=== PATIENT | male | born 1965 | race Caucasian/White ===

== ENCOUNTER 2024-12-29 11:12 | Emergency (ER) | payer BC, SELFPAY ==
[2024-12-29 11:32] VITALS: BP 138/75
--- NOTE | 2024-12-29 11:33 | ED.GENMED ---
ED Provider Triage
<Dinora Benz PA-C - Last Filed: 12/30/24 17:12>
-
Patient seen by provider in Triage?: Seen in Triage
59-year-old male smoker, no other known medical problems presents for chest pain that started yesterday with some left hand tingling and nausea or dry heaving. The pain seemed to get worse this morning from 7 and 9 AM where he felt like something
was sitting on his chest, it was hard to take a deep breath during this time. It did spontaneously get better without any meds. He has never had anything like that before. Patient works in [employer] and drove out this way because he lives here
to come to the hospital.
A medical screening examination has been initiated by a qualified medical provider. Based on the assessment performed at this time, it has been determined that an emergent medical condition may exist and the patient has been informed that further
medical evaluation and possible additional diagnostic testing may be needed.
HPI: This is a medical evaluation conducted in person to initiate diagnostic evaluation and provide initial therapeutics. Please see further documentation by the treating clinician.
GENERAL: Alert , in no apparent distress
ENT: No visible abnormalities
LUNGS: No acute respiratory distress
NEUROLOGICAL: Alert and oriented
SKIN: Skin intact. No visible changes.
MUSCULOSKELETAL: Moving extremities normally
PSYCH: Normal and appropriate interaction.
Will start with labs and an EKG and troponin, concerning sounding chest pain for ACS. Pain is much improved currently. He is not significantly hypertensive. No known PE risk factors
EKG reviewed and he does have a new T wave inversion, RSR prime in V2 where he only had it in V1 previously
History of Present Illness
<Dinora Benz PA-C - Last Filed: 12/30/24 17:12>
General
Chief Complaint: Chest Pain
Time Seen by Provider: 12/29/24 16:26
<Susi French PA-C - Last Filed: 12/30/24 01:10>
General
Source: patient
Exam Limitations: none
Nursing documentation reviewed up to this point in time: agreed with
History of Present Illness
History of Present Illness:
59-year-old male with no known past medical history presents emergency department today with concerns of chest pain. This started earlier today while at work. Patient states that when he woke up this morning, he started to feel numbness and
tingling in his left upper extremity starting at the forearm down to the fingers. 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
feel heaviness in his chest. He states that he felt it in the middle of his chest and in the epigastric region. Patient reports that this felt similar 20s had heartburn in the past but states that it was more intense than heart burn he has had.
Patient states that he took a walk at work and also started develop some lightheadedness as well and states that he felt winded. Patient reports that all the symptoms have resolved and currently he is pain-free however he does note some fatigue.
He states that his chest pain has entirely resolved. He denies any shortness of breath. He states that his paresthesias have resolved as well. He denies any trouble walking. He denies any redness or swelling in his lower extremities. Denies any
recent surgeries or hospitalizations. Denies any family history of cardiac disease. He has no personal history of cardiac disease. He does smoke a few cigarettes daily and states that he is trying to quit.
Past History
<Dinora Benz PA-C - Last Filed: 12/30/24 17:12>
Past History
ED Past Medical History: Other (Chronic low back pain and bone spurs which is treated with analgesics everyday)
Social History
Tobacco: Smoker
Alcohol: Occasional
Family History
Family History: Negative Diabetes, Hypertension or CAD
Review of Systems
<Susi French PA-C - Last Filed: 12/30/24 01:10>
Review of Systems
All Other Systems: ROS reviewed and negative except as documented in HPI and ROS
Phy Exam
<Susi French PA-C - Last Filed: 12/30/24 01:10>
Physical Exam
Physical Exam:
General: Patient is well appearing and in no acute distress; non-toxic
Skin: Warm and dry, no rashes or lesions
Head: Normocephalic, atraumatic
Eyes: Sclera non-icteric. EOMs intact.
Cardiac: Regular rate and rhythm, no murmurs, no tenderness palpation of external chest wall
Peripheral Vascular: No lower extremity swelling or edema, 2+ radial pulses bilaterally.
Pulm: Normal respiratory effort, no wheezes, rales, rhonchi
Abdomen: No abdominal tenderness to palpation
Musculoskeletal: 5 out of 5 strength in bilateral upper extremities. No midline cervical tenderness to palpation no midline thoracic tenderness.
Neuro: CN II-XII intact, no focal neurologic deficits. Sensation intact to left upper extremity.
Psychiatric: Appropriate mood and affect.
Scores
<Dinora Benz PA-C - Last Filed: 12/30/24 17:12>
Heart Score for Chest Pain Patients
Heart Score for Chest Pain Patients: 3
Heart Score Risk: 2.5% MACE over next 6 weeks
<Susi French PA-C - Last Filed: 12/30/24 01:10>
Heart Score for Chest Pain Patients
Heart Score for Chest Pain Patients: 3
Heart Score Risk: 2.5% MACE over next 6 weeks
<Page Woodson DO - Last Filed: 12/29/24 17:44>
Heart Score for Chest Pain Patients
STEMI patient?: No
History: Moderately Suspicious
ECG: Normal
Age: >45 - <65 years
Risk Factors: 1 or 2 Risk Factors
Troponin: </= Normal Limit
Heart Score for Chest Pain Patients: 3
Heart Score Risk: 2.5% MACE over next 6 weeks
Course
<Dinora Benz PA-C - Last Filed: 12/30/24 17:12>
Orders/Labs/Results
Orders:
Orders
12/29/24 11:13
EKG [Electrocardiogram (*1)] Urgent
Reason for Study: Chest Pain
EKG- Treatment ONCE
12/29/24 11:46
Complete Blood Count/With Diff Urgent
Comprehensive Metabolic Panel Urgent
Lipase Urgent
Troponin I Urgent
12/29/24 15:58
Electrocardiogram (*1) Urgent
Reason for Study: Chest Pain
EKG- Treatment ONCE
12/29/24 16:56
Troponin I Urgent
Abnormal Lab Results
12/29/24
11:46
MCHC 32.9 L g/dL
(33.0-37.0)
Absolute Monos (auto) 0.8 H 10^3/uL
(0.1-0.6)
Monocytes % 9.4 H %
(1.7-9.3)
Carbon Dioxide 32 H mmol/L
(22-30)
Creatinine 0.6 L mg/dL
(0.7-1.3)
Glucose 103 H mg/dl
(70-99)
12/29/24 11:46
12/29/24 11:46
Vital Signs
Initial and Last Documented VS:
Initial Vital Signs
Temp Pulse Resp BP Pulse Ox
36.9 C 60 16 138/75 97
12/29/24 11:32 12/29/24 11:32 12/29/24 11:32 12/29/24 11:32 12/29/24 11:32
Last Documented Vital Signs
Temp Pulse Resp BP Pulse Ox
36.9 C 51 10 130/65 93
12/29/24 11:32 12/29/24 18:30 12/29/24 18:30 12/29/24 16:17 12/29/24 18:15
<Susi French PA-C - Last Filed: 12/30/24 01:10>
Orders/Labs/Results
Orders:
Orders
12/29/24 11:13
EKG [Electrocardiogram (*1)] Urgent
Reason for Study: Chest Pain
EKG- Treatment ONCE
12/29/24 11:46
Complete Blood Count/With Diff Urgent
Comprehensive Metabolic Panel Urgent
Lipase Urgent
Troponin I Urgent
12/29/24 15:58
Electrocardiogram (*1) Urgent
Reason for Study: Chest Pain
EKG- Treatment ONCE
12/29/24 16:56
Troponin I Urgent
Abnormal Lab Results
12/29/24
11:46
MCHC 32.9 L g/dL
(33.0-37.0)
Absolute Monos (auto) 0.8 H 10^3/uL
(0.1-0.6)
Monocytes % 9.4 H %
(1.7-9.3)
Carbon Dioxide 32 H mmol/L
(22-30)
Creatinine 0.6 L mg/dL
(0.7-1.3)
Glucose 103 H mg/dl
(70-99)
12/29/24 11:46
12/29/24 11:46
Vital Signs
Initial and Last Documented VS:
Initial Vital Signs
Temp Pulse Resp BP Pulse Ox
36.9 C 60 16 138/75 97
12/29/24 11:32 12/29/24 11:32 12/29/24 11:32 12/29/24 11:32 12/29/24 11:32
Last Documented Vital Signs
Temp Pulse Resp BP Pulse Ox
36.9 C 51 10 130/65 93
12/29/24 11:32 12/29/24 18:30 12/29/24 18:30 12/29/24 16:17 12/29/24 18:15
<Page Woodson, DO - Last Filed: 12/29/24 17:44>
Orders/Labs/Results
Orders:
Orders
12/29/24 11:13
EKG [Electrocardiogram (*1)] Urgent
Reason for Study: Chest Pain
EKG- Treatment ONCE
12/29/24 11:46
Complete Blood Count/With Diff Urgent
Comprehensive Metabolic Panel Urgent
Lipase Urgent
Troponin I Urgent
12/29/24 15:58
Electrocardiogram (*1) Urgent
Reason for Study: Chest Pain
EKG- Treatment ONCE
12/29/24 16:56
Troponin I Urgent
Abnormal Lab Results
12/29/24
11:46
MCHC 32.9 L g/dL
(33.0-37.0)
Absolute Monos (auto) 0.8 H 10^3/uL
(0.1-0.6)
Monocytes % 9.4 H %
(1.7-9.3)
Carbon Dioxide 32 H mmol/L
(22-30)
Creatinine 0.6 L mg/dL
(0.7-1.3)
Glucose 103 H mg/dl
(70-99)
12/29/24 11:46
12/29/24 11:46
Vital Signs
Initial and Last Documented VS:
Initial Vital Signs
Temp Pulse Resp BP Pulse Ox
36.9 C 60 16 138/75 97
12/29/24 11:32 12/29/24 11:32 12/29/24 11:32 12/29/24 11:32 12/29/24 11:32
Last Documented Vital Signs
Temp Pulse Resp BP Pulse Ox
36.9 C 51 10 130/65 93
12/29/24 11:32 12/29/24 18:30 12/29/24 18:30 12/29/24 16:17 12/29/24 18:15
<Susi French PA-C - Last Filed: 12/30/24 01:10>
MDM/Problems Addressed
Differential Diagnosis Includes:
Differentials include ACS, cervical radiculopathy, musculoskeletal strain/strain, costochondritis, GERD
MDM/Problems Addressed:
59-year-old male with no past medical history presents emergency department today with concerns of chest pain and left upper extremity paresthesias. He has never had anything like this before. All symptoms are resolved at this point. On exam
patient is well-appearing in no acute distress he has no reproducible chest pain his heart is regular rate and rhythm with no murmurs, his lungs are clear. He has 2+ radial pulses bilaterally. Is possible that patient's symptoms could be related
to musculoskeletal strain in light of heavy lifting however patient story with associated paresthesias and dizziness is concerning for potential cardiac etiology. No sign ischemia on his EKG here, to repeat troponins undetectable, patient expressed
frustration and not want to stay for x-ray reading. Patient stable discharge. Patient will be given follow-up with cardiac chest pain hotline.
Chronic conditions affecting care:
N/A
<Susi French PA-C - Last Filed: 12/30/24 01:10>
*Pulse Oximetry
Patient hypoxic: no
*Critical Care Note
Total Time (30-74mins, 75-104mins- exclusive of procedures): Not Applicable
Data Reviewed
Review of Other/Old Records Reveals: Records (Reviewed previous ER physician documentation, no discharge summaries in [facility] to review)
ED Attending Note
<Dinora Benz PA-C - Last Filed: 12/30/24 17:12>
-
Portions of this chart may have been created with voice recognition software.� Occasional wrong word or��sound alike� substitutions may have occurred due to the inherent limitations of voice recognition software.
<Page Woodson DO - Last Filed: 12/29/24 17:44>
ED Attending Note
Patient seen and examined by attending physician: Yes
I performed the substantive portion of visit, reviewed & personally made and approve the management plan that is documented in note by myself or SANDRO.: Yes
I performed a history and physical exam of patient and discussed management with resident, I reviewed resident's note and agree with documented findings and plan of care.: Yes
ED Attending Note:
59-year-old male with history of tobacco abuse presenting to the emergency department with chest pain. Patient reports around 7 AM he started to have chest heaviness. Reports that he was lifting something heavy at time of onset. Symptoms went
away after about 30 minutes. Yesterday was having some paresthesias to his left arm. Denies any known cardiac history, however does report family history. Denies abdominal pain or GI symptoms. Denies any difficulty breathing. Denies fever or
cough.
Vital signs are normal. On exam, patient resting comfortably, symptom-free. Unremarkable cardiac and pulmonary exam. EKG does show some T wave inversion anteriorly, otherwise no ST elevation or acute appearing ischemia. Patient however does have
significant cardiac risk factors. Patient had laboratory analysis obtained prior to my assessment, undetectable troponin. No PE risk factors. Plan for repeat troponin and EKG
17:40 - Repeat troponin is undetectable. Repeat EKG is unchanged. Plan for close interval cardiac follow-up for stress testing for further restratification.
Discharge Plan
Departure
Patient Disposition: Home (Routine Discharge)
Date of Disposition: 12/29/24
Time of Disposition: 18:49
Patient with high blood pressure during this ER visit?: Yes
Condition: Good
Discharge Problem:
Chest pain
Instructions: Chest Pain DCA Follow Up, BLOOD PRESSURE
Prescriptions:
No Action
oxycodone-acetaminophen [Endocet] 1 EACH tablet
1 ea PO Q4
methylprednisolone 4 MG tablet
4 mg PO TAPER Qty: 0 0RF
Referrals:
NONE,* [Family Provider] -
Activity Restrictions/Additional Instructions:
You should receive a call to schedule an appointment with a accountancy professor in the next few days. If you do not receive a call, please call attached number to schedule an appointment for further evaluation.
PLEASE RETURN EMERGENCY DEPARTMENT TO YOU DEVELOP CHEST PAIN, SHORTNESS OF BREATH, NAUSEA AND VOMITING, FAINTING SPELLS, DIZZINESS, LIGHTHEADEDNESS, VISUAL LOSS, WEAKNESS IN ONE-SIDED BODY VERSUS OTHER, DIFFICULTY AMBULATING, OR ANY OTHER SIGNS OR
SYMPTOMS WORRISOME TO YOU.
Interventions
Interventions:
*Risk Screen - Suicide Last Done: 12/29/24 11:34
*General Assessment Last Done: 12/29/24 17:18
*Neglect/Abuse Screening Last Done: 12/29/24 11:34
ED- Fall Risk Assessment Last Done: 12/29/24 17:13
*Nursing Disposition Last Done: 12/29/24 18:53
ED- Cardiac Assessment Last Done: 12/29/24 17:13
Discharge Date and Time
Discharge Date/Time: 12/29/24 18:53
Print Language: RWANDAN
[2024-12-29 12:12] LABS: % Basophils 0.5 % (0-2); % Eosinophils 0.9 % (0-6); % Immature Granulocytes 0.3 % (0-0.5); % Lymphocytes 27.8 % (20.5-51.1); % Monocytes 9.4 % (1.7-9.3); % Neutrophils 61.1 % (42.2-75.2); Absolute Eosinophils 0.1 10^3/uL (0-0.7); Absolute Lymphocytes 2.2 10^3/uL (1.2-3.4); Absolute Monocytes 0.8 10^3/uL (0.1-0.6); Absolute Neutrophils 4.9 10^3/uL (1.4-6.5); Hematocrit 43.2 % (39.0-52.0); Hemoglobin 14.2 g/dL (13.0-18.0); Mean Corp Hgb Conc. 32.9 g/dL (33.0-37.0); Mean Corpuscular Hgb 29.8 pg (27.0-31.0); Mean Corpuscular Volume 90.8 fL (80.0-94.0); Mean Platelet Volume 10.1 fL (7.4-10.4); Nucleated Red Blood Cells % 0 % (-); Platelet Count 190 10^3/uL (130-400); Red Blood Cell Count 4.76 10^6/uL (4.70-6.10); Red Cell Dist. Width 12.8 % (11.5-14.5)
[2024-12-29 12:20] LABS: ALT (SGPT) 22 U/L (0-50); AST (SGOT) 28 U/L (17-59); Albumin 4.4 g/dl (3.5-5.0); Alkaline Phosphatase 64 U/L (38-126); Blood Urea Nitrogen 13 mg/dl (9-20); Calcium 9.4 mg/dl (8.4-10.2); Carbon Dioxide 32 mmol/L (22-30); Chloride 99 mmol/L (98-107); Glucose 103 mg/dl (70-99); Lipase 60 U/L (23-300); Potassium 4.8 mmol/L (3.5-5.1); Sodium 136 mmol/L (135-145); Total Bilirubin 0.4 mg/dl (0.2-1.3); eGFR > 60.00
[2024-12-29 12:31] LABS: Troponin I < 0.012 ng/ml
[2024-12-29 13:47] VITALS: BP 130/60
[2024-12-29 16:17] VITALS: BP 130/65
[2024-12-29 17:29] LABS: Troponin I < 0.012 ng/ml
== END 2024-12-29 18:53 | disposition home or self-care (01) ==
LOC: EMR 11:12
PROVIDERS: Physician Assistant; EMERGENCY PHYSICIAN Student in an Organized Health Care Education/Training Program
DX: R07.89 Other chest pain (principal); F17.210 Nicotine dependence, cigarettes, uncomplicated
CPT/HCPCS: 99283; 80053; 83690; 84484; 85025; 93005

== ENCOUNTER → 2025-01-02 09:52 | Outpatient (REF) | payer BC, SELFPAY | LOC: HWRAD 09:52 | PROVIDERS: ATTENDING PHYSICIAN Internal Medicine Cardiovascular Disease; FAMILY PHYSICIAN Family Medicine | DX: R06.02 Shortness of breath (principal) | CPT/HCPCS: 71046 ==

== ENCOUNTER → 2025-01-12 07:30 | Outpatient (REF) | payer BC, SELFPAY | LOC: HWRCS 07:30 | PROVIDERS: ATTENDING PHYSICIAN Internal Medicine Cardiovascular Disease; FAMILY PHYSICIAN Family Medicine | DX: R06.02 Shortness of breath (principal); R94.31 Abnormal electrocardiogram [ECG] [EKG] | CPT/HCPCS: 78452; 93017; A9500 ==

== ENCOUNTER → 2025-01-21 09:13 | Outpatient (REF) | payer BC, SELFPAY | LOC: RCS 09:13 | PROVIDERS: ATTENDING PHYSICIAN Internal Medicine Cardiovascular Disease; FAMILY PHYSICIAN Family Medicine | DX: R06.02 Shortness of breath (principal); R94.31 Abnormal electrocardiogram [ECG] [EKG] | CPT/HCPCS: 93306; 93356 ==

== ENCOUNTER → 2025-08-16 13:43 | Outpatient (REF) | payer BC, SELFPAY | LOC: RAD 13:43 | PROVIDERS: ATTENDING PHYSICIAN Family Medicine | DX: J44.1 Chronic obstructive pulmonary disease with (acute) exacerbation (principal) | CPT/HCPCS: 71046 ==

== ENCOUNTER → 2025-09-25 15:05 | Outpatient (REF) | payer BC, SELFPAY | LOC: HWRAD 15:05 | PROVIDERS: ATTENDING PHYSICIAN Internal Medicine; FAMILY PHYSICIAN Family Medicine | DX: F17.210 Nicotine dependence, cigarettes, uncomplicated (principal); F17.200 Nicotine dependence, unspecified, uncomplicated | CPT/HCPCS: 71271 ==